=== PATIENT | male | born 1935 | race Caucasian/White ===

== ENCOUNTER → 2016-12-19 | Outpatient (CLI) | payer OTHER ==
--- NOTE | 2016-12-19 15:31 | MR ---
MRI of the Left Shoulder History: Left shoulder pain. Osteoarthritis. Technique: Axial proton density, oblique coronal, and sagittal T1 and T2 sequences were acquired. Findings: Advanced features of osteoarthritis are present within the glenohumeral joint, with grade 4 chondral loss throughout the humeral head and glenoid. There is bony remodeling of the glenoid sec ondarily. There are at least two loose bodies identified within the anterior aspect of the shoulder joint, with an 11-mm loose body in the subscapularis recess and a larger 17-mm loose body residing wi thin the anterior aspect of the shoulder joint inferiorly. Associated degenerative maceration of the glenoid labrum throughout, with fragmentation and nondisplaced tear throughout the posterior labrum. Distal supraspinatus tendinosis and fraying is present distally just proximal to the greater tuberosi ty, without a tear. The infraspinatus is intact. The subscapularis is markedly thinned distally com patible with a high-grade partial tear. The teres minor is intact. The long head biceps tendon is severely atrophic through the shoulder joint compatible with a high-gr hugo partial tear. An 8-mm loose body resides within the long head biceps tendon sheath at the tova l neck level. The acromioclavicular joint is minimally degenerative. IMPRESSIONS 1. Advanced grade 4 glenohumeral osteoarthritis, with bony remodeling and multiple intraarticular lo ose bodies. 2. High-grade partial tear subscapularis tendon and long head biceps tendon. An 8-mm loose body wit hin the long head biceps tendon sheath. 3. Mild distal supraspinatus tendinosis and fraying, without full-thickness tear.
== END ==
LOC: FIMAGING 13:47
PROVIDERS: ATTEND Orthopaedic Surgery
DX: M19.012 Primary osteoarthritis, left shoulder (principal)

== ENCOUNTER 2018-05-31 15:17 | Emergency (ER) | payer OTHER ==
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
[2018-05-31 17:30] VITALS: BP 142/90
== END 2018-05-31 17:29 | disposition home or self-care (01) ==
DX: M54.31 Sciatica, right side (principal); I10 Essential (primary) hypertension; Z79.82 Long term (current) use of aspirin; V18.4XXA Pedal cycle driver injured in noncollision transport accident in traffic accident, initial encounter; Y92.410 Unspecified street and highway as the place of occurrence of the external cause; Y99.8 Other external cause status; Y93.89 Activity, other specified

== ENCOUNTER 2018-08-18 06:13 | Observation (INO) | payer OTHER ==
--- NOTE | 2018-08-18 06:28 | EDPHY ---
H & P Time Seen by Provider: 08/18/18 06:26 HPI/ROS: CHIEF COMPLAINT: Abdominal pain HISTORY OF PRESENT ILLNESS: Patient has a history of kidney stones and hypertension. He has history of hernia repair. He presents with left-sided lower abdominal pain which is been intermittent since last week on Sunday. He thought it was a kidney stone yesterday morning had a episode of severe pain and thought it was over. He went to a republican last night was asymptomatic. On the way home from the republican his pain reoccurred and eating kidney sleep last night even after taking 2 Aleve. He presents today with mild to moderate pain, declines additional pain medication. Located in the left side of his lower abdomen. Does not radiate, better sitting up but not associated with fever chills urinary symptoms vomiting or diarrhea. Does not radiate. Not better worse with eating or drinking. REVIEW OF SYSTEMS: Eye: no change in vision ENT: no sore throat Cardiac: no chest pain or syncope Pulmonary: no cough or SOB Abdomen: HPI, decreased oral intake of food and water yesterday and today. Musculoskeletal: He was here previously in the emergency department for back pain which is improved a lot. Skin: no rash Neuro: no headache, no weakness or numbness in legs or feet. Constitutional: no fever : no urinary symptoms A comprehensive 10 point review of systems is otherwise negative aside from elements mentioned in the history of present illness. PAST MEDICAL HISTORY: Includes hypertension, hernia repair, high cholesterol, back pain as above Social history: Nonsmoker General Appearance: Alert and conversant, cooperative. Eyes: No scleral icterus. ENT, Mouth: Slightly dry mucous membranes. Respiratory: Normal respiratory effort, breath sounds equal, lungs are clear to auscultation. Cardiovascular: Regular rate and rhythm. Gastrointestinal: Abdomen is soft and non tender. No rebound or guarding. No pulsatile mass felt. Neurological: Alert, face symmetric, normal motor and sensory in extremities. Skin: Warm and dry, no rashes. No evidence of zoster. Musculoskeletal: No peripheral edema. Psychiatric: Not agitated. Emergency Department course/MDM: Patient declined pain medication. I-STAT creatinine noted to be 2.1. Normal saline 2 L IV given for likely dehydration with acute kidney injury, noncontrast CT abdomen pelvis. Urinalysis. Labs to include formal creatinine study. 735: Results of the CT, from Dr. Dimitrios is 6 mm stone at the L5 level on the left side with hydronephrosis. Patient given 2 mg IV morphine for pain. Plan to admit him with renal colic for the last 4 days now with acute kidney injury and a creatinine 2.1 compared to baseline around 1.2. Received IV fluid in the emergency department and total 2 doses of 2 mg IV morphine for pain. No nonsteroidals. Urology will consult, patient has been NPO since last night. Smoking Status: Never smoked Constitutional: Initial Vital Signs Temperature (C) 36.5 C 08/18/18 06:18 Heart Rate 79 08/18/18 06:18 Respiratory Rate 16 08/18/18 06:18 Blood Pressure 155/96 H 08/18/18 06:18 O2 Sat (%) 92 08/18/18 06:18 O2 Delivery Mode Room Air Allergies/Adverse Reactions: No Known Allergies Allergy (Verified 08/18/18 06:20) Home Medications: Medication Instructions Recorded Aspirin [Aspirin 81mg (*)] 81 mg PO HS 08/18/18 Herbals/Supplements -Info Only 1 ea PO DAILY 08/18/18 Ibuprofen [Motrin (*)] 600 mg PO Q8H PRN 08/18/18 Lisinopril [Zestril 10 mg (*)] 10 mg PO HS 08/18/18 Simvastatin 20 mg PO HS 08/18/18 Medical Decision Making - Diagnostics Imaging: Discussed imaging studies w/ scallop raker Radiologist Differential Diagnosis: Differential considered including but not limited to renal colic, renal infarct , UTI or pyelonephritis, abdominal aortic aneurysm, musculoskeletal. Consult/Admit Bed Type: [place] 750, [facility] 819 will consult - Data Points Laboratory Results: Laboratory Results 08/18/18 06:25 08/18/18 06:25 08/18/18 08/18/18 08/18/18 06:45 06:25 06:25 WBC 16.43 10^3/uL H 10^3/uL (3.80-9.50) RBC 5.22 10^6/uL 10^6/uL (4.40-6.38) Hgb 16.6 g/dL g/dL (13.7-17.5) POC Hgb 17.7 gm/dL H gm/dL (13.7-17.5) Hct 49.1 % % (40.0-51.0) POC Hct 52 % H % (40-51) MCV 94.1 fL fL (81.5-99.8) MCH 31.8 pg pg (27.9-34.1) MCHC 33.8 g/dL g/dL (32.4-36.7) RDW 13.5 % % (11.5-15.2) Plt Count 198 10^3/uL 10^3/uL (150-400) MPV 11.3 fL fL (8.7-11.7) Neut % (Auto) Not Reported Lymph % (Auto) Not Reported [place] % (Auto) Not Reported Eos % (Auto) Not Reported Baso % (Auto) Not Reported Nucleat RBC Rel Count Not Reported Absolute Neuts (auto) Not Reported Absolute Lymphs (auto) Not Reported Absolute Monos (auto) Not Reported Absolute Eos (auto) Not Reported Absolute Basos (auto) Not Reported Absolute Nucleated RBC Not Reported Immature Gran % Not Reported Seg Neutrophils % 77.8 % % Band Neutrophils % 0.0 % % Lymphocytes % 9.1 % % Monocytes % 11.1 % % Eosinophils % 2.0 % % Basophils % 0.0 % % Metamyelocytes % 0.0 % % Myelocytes % 0.0 % % Promyelocytes % 0.0 % % Blast Cells % 0.0 % % Immature Gran # Not Reported Absolute Seg Neuts 12.78 10^/uL H 10^/uL (1.70-6.50) Absolute Band Neuts 0.00 10^3/uL 10^3/uL (0.00-0.70) Absolute Lymphocytes 1.50 10^3/uL 10^3/uL (1.00-3.00) Absolute Monocytes 1.82 10^3/uL H 10^3/uL (0.30-0.80) Absolute Eosinophils 0.33 10^3/uL 10^3/uL (0.03-0.40) Absolute Basophils 0.00 10^3/uL L 10^3/uL (0.02-0.10) Absolute Metamyelocyte 0.00 10^3/mL 10^3/mL (0.00-0.00) Absolute Myelocytes 0.00 10^3/mL 10^3/mL (0.00-0.00) Absolute Promyelocytes 0.00 10^3/uL 10^3/uL (0.00-0.00) Absolute Plasma Cells 0.00 10^3/uL 10^3/uL (0.00-0.00) Nucleated RBCs 0 /100 WBC /100 WBC (0-0) Atypical Lymphocytes 2+ H Absolute Blast Cells 0.00 10^3/uL 10^3/uL (0.00-0.00) Plasma Cells % 0.0 % % Platelet Estimate ADEQUATE (ADEQ) Smear Review By Pending POC Sodium 141 mEq/L mEq/L (135-145) Sodium 140 mEq/L mEq/L (135-145) POC Potassium 4.2 mEq/L mEq/L (3.3-5.0) Potassium 4.7 mEq/L mEq/L (3.3-5.0) POC Chloride 105 mEq/L mEq/L (97-110) Chloride 106 mEq/L mEq/L (97-110) Carbon Dioxide 23 mEq/l mEq/l (22-31) Anion Gap 11 mEq/L mEq/L (8-16) POC BUN 36 mg/dL H mg/dL (7-23) BUN 40 mg/dL H mg/dL (7-23) Creatinine 2.0 mg/dL H mg/dL (0.7-1.3) POC Creatinine 2.1 mg/dL H mg/dL (0.7-1.3) Estimated GFR 32 Glucose 101 mg/dL H mg/dL (70-100) POC Glucose 104 mg/dL H mg/dL (70-100) Calcium 9.4 mg/dL mg/dL (8.5-10.4) Urine Color Urine Appearance Urine pH Ur Specific [place] Urine Protein Urine Ketones Urine Blood Urine Nitrate Urine Bilirubin Urine Urobilinogen Ur Leukocyte Esterase Urine RBC Urine WBC Ur Epithelial Cells Urine Mucus Urine Glucose 08/18/18 06:25 WBC RBC Hgb POC Hgb Hct POC Hct MCV MCH MCHC RDW Plt Count MPV Neut % (Auto) Lymph % (Auto) [place] % (Auto) Eos % (Auto) Baso % (Auto) Nucleat RBC Rel Count Absolute Neuts (auto) Absolute Lymphs (auto) Absolute Monos (auto) Absolute Eos (auto) Absolute Basos (auto) Absolute Nucleated RBC Immature Gran % Seg Neutrophils % Band Neutrophils % Lymphocytes % Monocytes % Eosinophils % Basophils % Metamyelocytes % Myelocytes % Promyelocytes % Blast Cells % Immature Gran # Absolute Seg Neuts Absolute Band Neuts Absolute Lymphocytes Absolute Monocytes Absolute Eosinophils Absolute Basophils Absolute Metamyelocyte Absolute Myelocytes Absolute Promyelocytes Absolute Plasma Cells Nucleated RBCs Atypical Lymphocytes Absolute Blast Cells Plasma Cells % Platelet Estimate Smear Review By POC Sodium Sodium POC Potassium Potassium POC Chloride Chloride Carbon Dioxide Anion Gap POC BUN BUN Creatinine POC Creatinine Estimated GFR Glucose POC Glucose Calcium Urine Color YELLOW Urine Appearance CLEAR Urine pH 5.0 (5.0-7.5) Ur Specific [place] 1.017 (1.002-1.030) Urine Protein NEGATIVE (NEGATIVE) Urine Ketones NEGATIVE (NEGATIVE) Urine Blood 2+ H (NEGATIVE) Urine Nitrate NEGATIVE (NEGATIVE) Urine Bilirubin NEGATIVE (NEGATIVE) Urine Urobilinogen NEGATIVE EU EU (0.2-1.0) Ur Leukocyte Esterase NEGATIVE (NEGATIVE) Urine RBC 5-10 /hpf H /hpf (0-3) Urine WBC 0-1 /hpf /hpf (0-3) Ur Epithelial Cells NONE SEEN /lpf /lpf (NONE-1+) Urine Mucus TRACE /lpf /lpf (NONE-1+) Urine Glucose NEGATIVE (NEGATIVE) Medications Given: Discontinued Medications Sodium Chloride (Ns) 1,000 mls @ 0 mls/hr IV EDNOW ONE; Wide Open PRN Reason: Protocol Stop: 08/18/18 06:49 Last Admin: 08/18/18 06:55 Dose: 1,000 mls Sodium Chloride (Ns) 1,000 mls @ 0 mls/hr IV EDNOW ONE; Wide Open PRN Reason: Protocol Stop: 08/18/18 06:51 Last Admin: 08/18/18 06:56 Dose: 1,000 mls Morphine Sulfate (Morphine) 2 mg IVP EDNOW ONE Stop: 08/18/18 07:33 Last Admin: 08/18/18 07:38 Dose: 2 mg Morphine Sulfate (Morphine) 2 mg IVP EDNOW ONE Stop: 08/18/18 08:03 Last Admin: 08/18/18 08:05 Dose: 2 mg Point of Care Test Results: Chemistry 08/18/18 06:45 POC Sodium 141 mEq/L mEq/L (135-145) POC Potassium 4.2 mEq/L mEq/L (3.3-5.0) POC Chloride 105 mEq/L mEq/L (97-110) POC BUN 36 mg/dL H mg/dL (7-23) POC Creatinine 2.1 mg/dL H mg/dL (0.7-1.3) POC Glucose 104 mg/dL H mg/dL (70-100) ISTAT H&H 08/18/18 06:45 POC Hgb 17.7 gm/dL H gm/dL (13.7-17.5) POC Hct 52 % H % (40-51) Departure - Departure Disposition: [facility] Inpatient Acute Clinical Impression: Acute kidney injury, Renal colic on left side Condition: Good
[2018-08-18] MEDS ORDERED: NS 1,000 ML IV ONE ×2 (06:48→06:50)
[2018-08-18 06:54] LABS: PLATELET COUNT 198 10^3/uL (150-400)
[2018-08-18] MEDS ORDERED: ACETAMINOPHEN 325 MG TAB PO PRN ×2 (08:23→08:24)
[2018-08-18] MEDS ORDERED: ONDANSETRON 4 MG/2 ML VIAL IVP PRN ×2 (08:23→16:39)
[2018-08-18] MEDS ORDERED: ONDANSETRON DISINTEGRATING 4 MG TAB PO PRN (08:23)
[2018-08-18] MEDS ORDERED: HYDROCODONE/APAP 5/325 TAB PO PRN (08:24)
[2018-08-18] MEDS ORDERED: oxyCODONE IR 5 MG TAB PO PRN (08:24)
[2018-08-18] MEDS ORDERED: HYDROmorphone HCL 0.5 MG/0.5 ML SYR IVP PRN (08:24)
--- NOTE | 2018-08-18 09:15 | GHP ---
DATE OF ADMISSION: 08/18/2018 CHIEF COMPLAINT: Left-sided back and groin pain. HISTORY OF PRESENT ILLNESS: This is an 82-year-old man who presents with back pain. He has had righ t-sided back pain which started about 2 months ago. He was recently working with a physical [employer] t who had worked on the left side of his back. Since then, he has had significant pain. He has take n a lot of ibuprofen for this. He has not been eating or drinking as well. He has not had any nause a or vomiting. He has also not had any fevers. The pain starts in his left flank and radiates to hi s groin. He has not seen any blood in his urine either. He has continued to take his lisinopril. PAST MEDICAL/SURGICAL HISTORY: 1. Hypertension. 2. Hernia repair. 3. Hyperlipidemia. 4. Recent episode of back pain. 5. Patellar tendon reattachment. MEDICATIONS: Please see medication reconciliation. ALLERGIES: No known drug allergies. FAMILY HISTORY: Reviewed and noncontributory. SOCIAL HISTORY: Lives with his independently. He does not smoke. He drinks rare alcohol. REVIEW OF SYSTEMS: A 10-point review of systems is conducted and is negative except per HPI. PHYSICAL EXAM: VITAL SIGNS: Blood pressure is 135/83, heart rate 70, respiration rate 16, saturatin g 94% on room air. Temperature is 36.6. GENERAL: Mr. Oliva is a pleasant elderly man who is rest ing comfortably in the bed, in no acute distress. HEENT: Shows him to be normocephalic, atraumatic. CARDIOVASCULAR: Regular rate and rhythm. No murmurs, rubs, or gallops. PULMONARY: Lungs clear t o auscultation bilaterally. ABDOMEN: Soft, nontender, nondistended. No guarding or rebound. BACK: Shows him to have mild tenderness to palpation, left low back. SKIN: Shows no rash. : No [place]. NEUROLOGIC: Shows him to be alert and oriented x3. He is moving all extremities. PSYCHIATRIC: Lesli ws normal mood and affect. LABORATORY DATA: Notable for a white count of 16,000, hemoglobin is 16. Basic metabolic panel show s a creatinine of 2.0, with a potassium of 4.7. Urinalysis shows 5-10 red cells, 2+ blood, no whites , leuk esterase or nitrites. DATA: 1. Discussed with Dr. Charles. Will admit to med/surg. 2. I personally reviewed and interpreted the CT scan. This does show a 6 mm left-sided obstructing kidney stone, with mild hydroureter as well as hydronephrosis on the left side. Full report is pendi ng at this time. IMPRESSION AND PLAN: 1. Left-sided obstructive ureterolithiasis: Dr. Hernadez has been consulted, likely plan for ureteros copy with stent placement and stone extraction today. Will strain his urine. For now, place him on tamsulosin. Given his elevated white count. We will treat empirically for urinary tract infection, although his urine is bland. I have written him for Rocephin. 2. Acute kidney injury: Suspect that this is prerenal. He has also been taking NSAIDs, as well as ibuprofen. Will hold nephrotoxins and provide him with IV fluids today. Presumably his right kidney works; thus, I doubt that this is post-renal cause of his kidney injury. 3. Hypertension: Hold lisinopril. 4. Hyperlipidemia: Simvastatin. 5. Code status: He would like to be full code. /[id number]/MODL
[2018-08-18] MEDS: TAMSULOSIN HCL 0.4 MG CAP PO SCH ×3 (10:05→10:26)
[2018-08-18] MEDS: NS 1,000 ML IV SCH (10:05)
--- NOTE | 2018-08-18 12:51 | SOAPPROG ---
SOAP Progress Note Assessment/Plan: Assessment: 1. Sizable symptomatic left mid-ureteral stone: stable, but stone unable to likely pass spontaneously. 2. Elevated creatinine -- likely due to obstructing calculus. Plan: 1. Proceed with left ureteroscopy and stone management + stent placement this afternoon. (consult dict. # [id number]) Objective: Vital Signs Temp Pulse Resp BP Pulse Ox 36.6 C 73 16 143/71 H 90 L 08/18/18 11:59 08/18/18 11:59 08/18/18 11:59 08/18/18 11:59 08/18/18 11:59 08/17/18 08/18/18 08/19/18 05:59 05:59 05:59 Intake Total 35 Output Total 300 Balance -265 ICD10 Worksheet Patient Problems: Problems Problem Status Onset Acute kidney injury Acute Renal colic on left side Acute
[2018-08-18] MEDS ORDERED: LIDOCAINE 2% JELLY 20 ML (UROJECT) ONE (14:30)
[2018-08-18] MEDS ORDERED: IOPAMIDOL (ISOVUE-M 300) 15 ML VIAL ONE (14:30)
[2018-08-18] MEDS ORDERED: METOCLOPRAMIDE 10 MG/2 ML VIAL ONE (15:19)
[2018-08-18] MEDS ORDERED: DEXAMETHASONE 4 MG/ML VIAL ONE ×2 (15:19)
[2018-08-18] MEDS ORDERED: PROPOFOL 200 MG/20 ML VIAL ONE (15:19)
[2018-08-18] MEDS ORDERED: fentaNYL 100 MCG/2 ML INJ ONE ×2 (15:19)
[2018-08-18] MEDS ORDERED: LIDOCAINE 2% 100 MG/5 ML SYR ONE (15:20)
[2018-08-18] MEDS ORDERED: ROCURONIUM 50 MG/5 ML VIAL ONE (15:20)
--- NOTE | 2018-08-18 15:37 | GCON ---
UROLOGY CONSULTATION NOTE DATE OF CONSULTATION: 08/18/2018 REFERRING PHYSICIAN: Hospitalist Service REASON FOR CONSULTATION: Symptomatic left ureteral calculus. HISTORY: This is an 82-year-old gentleman that about last Sunday started experiencing left-sided lower quadrant abdominal pain that was consistent with his prior episodes of nephrolithiasis. The pain became severe enough that he presented to the emergency room earlier today for relief. He denies any associated nausea, vomiting, fevers, chills, dysuria, gross hematuria, nor other changes in his voiding pattern. Imaging was performed which revealed a left ureteral calculus. The patient was admitted for further management. Since admission, the patient has felt much better. He is currently not in any significant pain. His past urologic history is notable for recurrent nephrolithiasis with at least 4-5 prior episodes since the , which have all passed spontaneously prior to this episode. He has never seen a urologist previously for these issues. PAST MEDICAL HISTORY: Notable for high blood pressure, high cholesterol, lower back pain (improved following recent physical therapy). PAST SURGICAL HISTORY: Inguinal hernia repair. ADMISSION MEDICATIONS: Simvastatin 20 mg daily, baby aspirin, ibuprofen 600 mg q.8 hours p.r.n., lisinopril 10 mg daily. MEDICAL ALLERGIES: None known. FAMILY HISTORY: Not contributory. SOCIAL HISTORY: The patient and his Cathryn live in the [place] area. He denies use of tobacco products. REVIEW OF SYSTEMS: Unremarkable other than mentioned above in the HPI and Past Medical History. PHYSICAL EXAM: GENERAL: A well-developed, well-nourished elderly male lying supine in bed in no acute distress. VITAL SIGNS: Blood pressure 143/71. Pulse 73. Respirations 16. Oxygen saturations 98% on room air. Temperature 36.6 Celsius. Height 172 cm. Weight 69 kg. BMI 23. HEENT: Normocephalic. Atraumatic. NECK: Normal appearance. EARS: Significantly decreased hearing acuity with bilateral hearing aids. CHEST: Unlabored respiratory pattern. HEART: Regular rate. ABDOMEN: Soft without palpable masses. No obvious organomegaly. No significant tenderness appreciated. BACK: No CVA tenderness. GENITALIA: Normal phallus and scrotal structures. Urethral meatus is somewhat small but in proper position. EXTREMITIES: Warm without cyanosis, clubbing, nor significant edema. VASCULAR: Normal femoral and dorsalis pedis pulses bilaterally. NEUROLOGIC: He is alert and oriented. He answers all questions appropriately with normal mood and affect. RADIOGRAPHIC STUDIES: Noncontrast abdominopelvic CT scan today: Upon my review , notable for mild left hydronephrosis and hydroureter down to a 6 x 4 x 6 mm long ureteral calculus over the mid ureter. The following renal calculi are also seen: Punctate left upper pole, 8 x 6 mm left mid pole, 4 mm right upper pole, 6 x 4 mm and 3 mm right lower pole calculi. Pelvis also reveals a significantly enlarged prostate. LABORATORY: Chemistry panel today notable for creatinine of 2.0 with otherwise normal electrolytes. Baseline creatinine is approximately 1.1 to 1.2. Urinalysis is notable only for blood. CBC is unremarkable with the exception of white blood cell count 16,000. IMPRESSION: 1. Symptomatic left mid ureteral calculus. This calculus is large enough that it is unlikely to pass spontaneously. 2. Bilateral asymptomatic nonobstructing nephrolithiasis. 3. Elevated creatinine likely secondary to acute renal injury related to obstructing ureterolithiasis. I had an extensive discussion with the patient and his today regarding the symptomatic ureteral calculus. Management options would include observation versus ureteroscopy and intraoperative calculus management. Based on the size and location of this calculus, it is highly unlikely to pass spontaneously. All aspects regarding ureteroscopy were reviewed with the patient and his today. All questions were answered regarding this procedure. Alternatives to this procedure as well as expected benefits and risks/complications (including but not limited to inability to remove existing calculus, inability to find a calculus, urinary tract infection, urinary tract scarring, postoperative urinary retention, possible need for further procedures, and ureteral stent side effects) were all discussed in detail. All of his questions were answered to his satisfaction today. PLAN: 1. Proceed with intraoperative left-sided ureteroscopy and calculus management with stent placement this afternoon. 2. He will have an indwelling Waite catheter placed overnight to reduce risk of postoperative urinary retention with hopes that it can be removed tomorrow. 3. Continue Flomax both during the hospitalization and following discharge. Thank you for this consultation. /[id number]/MODL MTDD
[2018-08-18] MEDS ORDERED: SUGAMMADEX SODIUM 200 MG/2 ML VIAL IVP ONE (16:19)
--- NOTE | 2018-08-18 16:35 | POSTOPPROG ---
Post Op Note Date of Operation: 08/18/18 Surgeon: Sonu Hernadez (# [id number]) Anesthesia: GET(General Endotracheal) Pre-op Diagnosis: Left mid-ureteral calculus Post-op Diagnosis: Left mid-ureteral calculus Procedure: Left ureteroscopy w/ laser lithotripsy, basket extraction, stent placement Findings: See open Inf/Abcess present in the surg proc area at time of surgery?: No EBL: Minimal Complications: None Drains: Other (4.7 Fr. multilength left ureteral stent) Specimen(s): Left ureteral calculus fragment Text Box - Additional Text Additional Text: Will keep indwelling Waite overnight (due to BPH) then have it removed on Sunday AM I will have him discharged on Flomax & Urogesic-Blue (Rx's on chart). He needs to FU in my office in 2-3 weeks for ureteral stent removal.
[2018-08-18] MEDS ORDERED: ALBUTEROL 3 ML DEYVIAL IH PRN (16:39)
[2018-08-18] MEDS ORDERED: fentaNYL 100 MCG/2 ML INJ IVP PRN (16:39)
[2018-08-18] MEDS ORDERED: NALOXONE HCL 0.4 MG/ML INJ IVP PRN (16:39)
--- NOTE | 2018-08-18 16:39 | PDANEPAE ---
ANE Past Medical History - Pulmonary History Hx Oxygen in Use at Home: No Hx Sleep Apnea: No Sleep Apnea Screening Result - Last Documented: Negative - Endocrine History Hx Diabetes: No - Chronic Pain History Chronic Pain: No ANE Review of Systems Review of Systems: ANE Patient History - Allergies Allergies/Adverse Reactions: No Known Allergies Allergy (Verified 08/18/18 06:20) - Home Medications Home Medications: Aspirin [Aspirin 81mg (*)] 81 mg PO HS 08/18/18 [Last Taken 08/17/18] Herbals/Supplements -Info Only 1 ea PO DAILY 08/18/18 [Last Taken 08/16/18] Ibuprofen [Motrin (*)] 600 mg PO Q8H PRN 08/18/18 [Last Taken 08/17/18] Lisinopril [Zestril 10 mg (*)] 10 mg PO HS 08/18/18 [Last Taken 08/17/18] Simvastatin 20 mg PO HS 08/18/18 [Last Taken 08/17/18] - NPO status NPO Since - Liquids (Date): 08/18/18 NPO Since - Liquids (Time): 10:00 NPO Since - Solids (Date): 08/17/18 NPO Since - Solids (Time): 20:30 - Smoking Hx Smoking Status: Never smoked ANE Labs/Vital Signs - Labs Result Diagrams: 08/18/18 06:25 08/18/18 06:25 - Vital Signs Blood Pressure: 153/89 Heart Rate: 73 Respiratory Rate: 26 O2 Sat (%): 98 Height: 172.72 cm Weight: 69.4 kg ANE Physical Exam - Airway Neck exam: FROM Mallampati Score: Class 2 Mouth exam: poor dentition - Pulmonary Pulmonary: no respiratory distress - Cardiovascular Cardiovascular: regular rate and rhythym - ASA Status ASA Status: II ANE Anesthesia Plan Anesthesia Plan: general endotracheal anesthesia
--- NOTE | 2018-08-18 16:39 | POSTANESTH ---
Post Anesthetic Evaluation Cardiovascular Status: Similar to Pre-Op Cond Respiratory Status: Similar to Pre-op Cond. Level of Consciousness/Mental Status: Mildly Sleepy, Arousable Pain Control: Adequate, Prn Tx Ordered Nausea/Vomiting Control: Adequate, Prn Tx Ordered Complications Possibly Related to Anesthesia: None Noted
--- NOTE | 2018-08-18 17:02 | GOP ---
DATE OF OPERATION: 08/18/2018 SURGEON: Sonu Hernadez MD ANESTHESIA: General endotracheal. PREOPERATIVE DIAGNOSIS: Symptomatic left mid ureteral calculus. POSTOPERATIVE DIAGNOSIS: Symptomatic left mid ureteral calculus. PROCEDURE PERFORMED: 1. Cystourethroscopy, left retrograde pyelography. 2. Left ureteroscopy with holmium laser calculus lithotripsy and basket extraction. 3. Left ureteral stent placement (4.7-Prydeinig multi-length). FINDINGS: Left mid ureteral calculus. SPECIMENS: Left ureteral calculus fragment. ESTIMATED BLOOD LOSS: Minimal. INDICATIONS: This gentleman was admitted earlier today with a symptomatic sizable left mid ureteral calculus. It was recommended that he undergo intraoperative management. The indications for the procedures as well as potential risks and complications were discussed with the patient preoperatively. He appeared to understand, his questions were answered, and he wished to proceed. Written informed surgical consent was thereafter obtained. DESCRIPTION OF PROCEDURE: The patient was brought to the operating room and administered general endotracheal anesthesia. He was carefully placed in the dorsal lithotomy position on the cystoscopic table. The genital area was sterilely prepped with Betadine scrub and paint, then draped in usual sterile fashion. The anterior urethra was carefully dilated with Kenan sounds up to 24-Prydeinig. Cystourethroscopy was then performed with a 22-Prydeinig sheath and the 30- and 70-degree lenses. Anterior urethra was otherwise unremarkable. Posterior urethra revealed moderate circumferential BPH with a prominent intravesical median lobe extending onto the trigone. The bladder was moderately to heavily trabeculated. Ureteral orifices were normal in regards to shape and position along the trigone. No areas of abnormal erythema, tumors , nor foreign bodies were otherwise seen. The prostatic mucosa was noted to be quite friable as a result of its enlarged size and bled easily, but not to an excessive degree, throughout the case. A 5-Prydeinig open-ended ureteral catheter was used to perform retrograde pyelography on the right side. This revealed a possible filling defect in the mid left ureter with mild proximal hydronephrosis and hydroureter. I then passed a 0.035 inch hydrophilic angle-tipped guidewire up the left ureter and advanced it until it was seen within the renal collecting system fluoroscopically. The ureteral catheter was then removed. A 10 cm balloon was used to dilate the entire length of the ureter distal to the perceived location of the calculus. This was done by maintaining a pressure of 14 atmospheres about 4 minutes. The balloon dilator and cystoscope were then removed while keeping the guidewire in place. Semi-rigid ureteroscopy was performed alongside the guidewire. The calculus was seen in the mid ureter. A 365 micron holmium laser fiber was used to fragment the calculus into minute pieces. One of these fragments was removed with a Nitinol 0 tip stone basket without complication. It was sent to Pathology for chemical analysis. The remainder of the calculus fragments were exceedingly small, and it was felt they would pass very easily with an indwelling ureteral stent in place. The ureteroscope was removed, and the cystoscope was back-loaded over the guidewire. A 4.7-Prydeinig multi-length hydrophilic ureteral stent was then advanced over the guidewire until it was properly positioned as seen fluoroscopically in the kidney and cystoscopically in the bladder. The bladder was then drained of all return which was light red as a result of prostatic mucosal oozing. The instruments were removed, and an 18-Prydeinig coude tip catheter placed to bag drainage with 15 cc of sterile water placed in the balloon. The patient was then awakened, extubated, transferred to his bed, and taken to the recovery room. He tolerated the procedure well overall. COMPLICATIONS: None. DISPOSITION: He was transferred to the recovery room in stable condition. His Waite catheter will be removed tomorrow morning, and he will be discharged once deemed appropriate by hospital service thereafter. I will have him continue Flomax and begin Urogesic Blue following discharge. These scripts will be on the patient's chart. He will need to return to my office in approximately 2-3 weeks for ureteral stent removal. /[id number]/MODL MTDD
[2018-08-18] MEDS ORDERED: PHENAZOPYRIDINE HCL 200 MG TAB PO SCH (19:00)
[2018-08-18] MEDS ORDERED: ATORVASTATIN CALCIUM 10 MG TAB PO SCH (21:00)
[2018-08-19] MEDS: NS 1,000 ML IV SCH ×2 (00:07→07:16)
[2018-08-19 04:55] LABS: PLATELET COUNT 184 10^3/uL (150-400)
[2018-08-19 08:25] VITALS: BP 122/86
[2018-08-19] MEDS: TAMSULOSIN HCL 0.4 MG CAP PO SCH (09:00)
--- NOTE | 2018-08-19 10:26 | GDS ---
ALL PROCEDURES: Cystoscopy/ureteroscopy with stone removal. ALL DIAGNOSES: 1. Obstructive left-sided ureterolithiasis. 2. Acute kidney injury. 3. History of hypertension. 4. Hyperlipidemia. 5. Suspected urinary tract infection. STUDIES PENDING AT TIME OF DISCHARGE: Stone analysis. HOSPITAL COURSE: This is an 82-year-old man who presented with symptomatic left-sided obstructing ur eteral stone. This was removed via ureteroscopy by Dr. Hernadez without complication. The stone has b een sent off for analysis. Ureteral stent was placed. He will follow up with Dr. Hernadez in 2 to 3 w eeks for removal of the stent. He had associated acute kidney injury. I think more likely this was prerenal in the setting of dehyd ration, as well as lisinopril and NSAID use. With hydration overnight, his kidney function has impro alla to his baseline creatinine of 1.2. I recommend that he stop all NSAIDs at this point. I recomme nd that he change his lisinopril to amlodipine for now given less nephrotoxicity. I have given a per him a prescription for this. He should follow up with Dr. Karimi for ongoing management. Another co nsideration would be hydrochlorothiazide if his stone is indeed shown to be calcium carbonate to redu ce the calcium excretion into the collecting system. We will defer to Dr. Hernadez and Dr. Karimi on . He has a small amount of hematuria now. I have given him warnings on what to look for with this. Re commend that he stop his aspirin for now. He had a white count of 16,000, a bland urine on urinalysis. Urinalysis, however, was drawn while th e obstructing stone was in place. Because of this, I will give him a short course of antibiotics, Le vaquin for an additional 5 days. I have given him warnings to look for and side effects of Levaquin. FOLLOWUP: 1. Dr. Hernadez in 2-3 weeks for stent removal. 2. Dr. Karimi for ongoing management of his hypertension. /[id number]/MODL
== END 2018-08-19 11:03 | disposition home or self-care (01) ==
LOC: INTOOBSV 07:50 → F1N 08:38
PROVIDERS: ADMIT Internal Medicine; ATTEND Internal Medicine
PROC: 0TC78ZZ Extirpation of Matter from Left Ureter, Via Natural or Artificial Opening Endoscopic (ICD-10-PCS; principal; 2018-08-18 15:30)
PROC: 0T778DZ Dilation of Left Ureter with Intraluminal Device, Via Natural or Artificial Opening Endoscopic (ICD-10-PCS; principal; 2018-08-18 15:30)
DX: N20.2 Calculus of kidney with calculus of ureter (principal); N17.9 Acute kidney failure, unspecified; I10 Essential (primary) hypertension; E78.5 Hyperlipidemia, unspecified; E86.0 Dehydration
CPT/HCPCS: 52356; 74176; 76001; 88300; 96361; 96374; 96375; 96376; 99285; C1726; C1758; C1769; C2625; G0378; J0696; J1100; J2001; J2270; J2704; J2765; J3010; Q9967; 82365-90; 82435-PO; 82565-PO; 82947-PO; 84132-PO; 84295-PO; 84520-PO; 85014-PO

== ENCOUNTER → 2019-03-03 | Outpatient (CLI) | payer OTHER | LOC: FIMAGING 08:40 | PROVIDERS: ATTEND Specialist | DX: N20.0 Calculus of kidney (principal) ==